=== PATIENT | male | born 1975 | race Caucasian/White ===

== ENCOUNTER 2022-01-13 07:09 | Emergency (ER) | payer BC, SELFPAY ==
--- NOTE | ~2022-01-13 | US_ITS ---
EXAMINATION: US venous doppler LE RT DATE: 01/13/2022 08:01 INDICATION: Right lower limb pain TECHNIQUE: [place]a scale images without and with compression and Doppler images of the right lower extre mity veins were obtained. COMPARISON: None FINDINGS: The right common femoral vein, profunda femoral vein, femoral vein, popliteal vein, peronea l trunk, posterior tibial veins, and greater saphenous vein are patent. There is a small amount of haile bcutaneous fluid in the popliteal fossa. IMPRESSION: 1. Patent right lower extremity veins. No evidence of deep venous thrombosis. 2. Small volume of fluid in the popliteal fossa which could reflect inflammation versus small Villalobos's cyst. Reviewed, dictated and finalized at location B. IMPRESSION: 1. Patent right lower extremity veins. No evidence of deep venous thrombosis. 2. Small volume of fluid in the popliteal fossa which could reflect inflammatio n versus small Villalobos's cyst.
[2022-01-13 07:13] VITALS: BP 126/75; PULSE 85; RESP 17; TEMP 36.6; O2SAT 99
--- NOTE | 2022-01-13 07:21 | ED.GENADULT ---
HPI - General Adult General Chief complaint: Extremity Injury, Lower Stated complaint: pain above prosthetic Time Seen by Provider: 01/13/22 07:14 History of Present Illness HPI narrative: 46-year-old male with past medical history of right BKA a presents for evaluation of posterior knee pain x24 hours. Patient states that he has developed a bump behind the right knee and there is soreness around the lump. The pain is mostly felt when he puts on his prosthetic and it became severe when he went to work this morning. He has had this prosthetic for about 7 months and prior to eat last night has not experienced any difficulties with it. Related Data Allergies Allergy/AdvReac Type Severity Reaction Status Date / Time No Known Allergies Allergy Verified 01/13/22 07:21 Review of Systems Review of Systems: CONSTITUTIONAL: Denies fever, chills, or sweats. EYES: Denies visual changes, redness, or discharge. ENT: Denies rhinorrhea, congestion, sore throat, or otalgia. CARDIOVASCULAR: Denies chest pain, palpitations, or edema. RESPIRATORY: Denies cough or dyspnea. GASTROINTESTINAL: Denies abdominal pain, nausea, vomiting, or diarrhea. GENITOURINARY: Denies dysuria or hematuria. SKIN: Denies rash or itching. MUSCULOSKELETAL: Denies back pain, joint pain, or myalgia. NEUROLOGIC: Denies headache, numbness, or weakness. PSYCHIATRIC: Denies anxiety or depression. Exam Narrative: GENERAL: Well-appearing, well-nourished, and in no acute distress. HEAD: Normocephalic, atraumatic. EYES: PERRLA and EOMI. ENT: Nares clear, no rhinorrhea or epistaxis. Mucous membranes moist. NECK: Supple. CHEST: Clear to auscultation. No respiratory distress. HEART: Regular rate and rhythm. No murmur heard. Normal peripheral pulses. ABDOMEN: Soft, nontender, nondistended, normal active bowel sounds. EXTREMITIES: Normal range of motion. No edema. SKIN: Warm, dry, no rash. NEURO: No focal deficits. Alert and oriented x3. PSYCH: Normal mood and affect. Course Vital Signs Vital signs: Vital Signs Temperature 97.8 F 01/13/22 07:13 Pulse Rate 85 01/13/22 07:13 Respiratory Rate 17 01/13/22 07:13 Blood Pressure 126/75 01/13/22 07:13 Pulse Oximetry 99 01/13/22 07:13 Oxygen Delivery Room Air 01/13/22 07:13 Temperature 97.8 F 01/13/22 07:13 Pulse Rate 85 01/13/22 07:13 Respiratory Rate 17 01/13/22 07:13 Blood Pressure 126/75 01/13/22 07:13 Pulse Oximetry 99 01/13/22 07:13 Oxygen Delivery Room Air 01/13/22 07:13 Medical Decision Making MDM Narrative Medical decision making narrative: We will get venous Doppler of right lower extremity although this seems more like irritation from the patient's prosthetic versus DVT. Pain medication has been offered but patient refuses. Venous Doppler reviewed patient request crutches or knee scooter. Vital Signs Vital Signs: Vital Signs Temperature 97.8 F 01/13/22 07:13 Pulse Rate 85 01/13/22 07:13 Respiratory Rate 17 01/13/22 07:13 Blood Pressure 126/75 01/13/22 07:13 Pulse Oximetry 99 01/13/22 07:13 Oxygen Delivery Room Air 01/13/22 07:13 Temperature 97.8 F 01/13/22 07:13 Pulse Rate 85 01/13/22 07:13 Respiratory Rate 17 01/13/22 07:13 Blood Pressure 126/75 01/13/22 07:13 Pulse Oximetry 99 01/13/22 07:13 Oxygen Delivery Room Air 01/13/22 07:13 Discharge Plan Discharge Clinical Impression: Acute leg pain Patient Disposition: Home, Self-Care Condition: Stable Instructions: Antibiotic Form Prescriptions: New ibuprofen 600 mg tablet 600 mg PO TID 7 Days Qty: 21 0RF Follow-up/Referrals: PHYSICIAN NOT ON STAFF,NONSTAFF [Primary Care Provider] - Time of Disposition: :29
== END 2022-01-13 09:52 | disposition home or self-care (01) ==
PROVIDERS: Emergency Provider Emergency Medicine
DX: M79.604 Pain in right leg (principal); Z89.511 Acquired absence of right leg below knee
CPT/HCPCS: 93971; 99284

== ENCOUNTER 2023-11-09 12:15 | Emergency (ER) | payer OTHER, SELFPAY ==
--- NOTE | ~2023-11-09 | XR_ITS ---
XR wrist LT w scaphoid Ordering provider: Alvin Yen MD History: . radial pain, hx wrist surgery 6 yrs ago, bucked off horse . Comparison: None. FINDINGS: BONES: No acute fracture or dislocation. No definite scaphoid fracture. Postoperative changes in the distal radius. JOINT SPACES: Normal. SOFT TISSUES: Normal. IMPRESSION: No acute osseous abnormality right wrist. Reviewed, dictated and finalized at location A.
--- NOTE | ~2023-11-09 | XR_ITS ---
XR hand LT min 3V Ordering provider: Alvin Yen MD History: . radial pain, hx wrist surgery 6 yrs ago, bucked off horse . Comparison: None. FINDINGS: BONES: No acute fracture or dislocation. Postoperative changes in the distal radius. JOINT SPACES: Well maintained. SOFT TISSUES: Unremarkable. IMPRESSION: No acute osseous abnormality left hand. Reviewed, dictated and finalized at location A.
[2023-11-09 12:17] VITALS: BP 115/72; PULSE 67; RESP 16; TEMP 36.6; O2SAT 97
[2023-11-09 12:19] VITALS: BP 115/72; PULSE 67; RESP 16; TEMP 36.6; O2SAT 97
--- NOTE | 2023-11-09 12:24 | ED.UPPEXIN ---
HPI - Extremity Injury (Upper) General Chief Complaint: Extremity Injury, Upper Stated Complaint: hand injury Time Seen by Provider: 11/09/23 12:23 History of Present Illness HPI narrative: 47-year-old white male was riding horse yesterday, got bucked off, landed hard on his left hand and arm, reports pain and swelling in the left wrist, 1st metatarsal, and base of the thumb. Denies any other injuries, did not hit his head, no loss of consciousness, no neck or back pain, no shoulder or hip pain Related Data Home Medications Medication Instructions Recorded Confirmed elviteg 150 mg-cob 150 mg-emtricit 1 tablet PO DAILY 11/09/23 11/09/23 200 mg-tenofo alafenam 10 mg tablet (Genvoya) Allergies Allergy/AdvReac Type Severity Reaction Status Date / Time No Known Allergies Allergy Verified 11/09/23 12:18 Review of Systems Review of Systems: All systems reviewed & are unremarkable except as noted in HPI and below Exam Const: General: healthy appearing, no acute distress and alert HENMT: Head: normal to inspection Face and sinus: normal facial exam Eyes: Conjunctivae: conjunctivae normal Pupils: Equal, round and reactive pupils present EOM: EOMs intact bilaterally Neck: Neck: normal visual inspection Chest: Chest palpation & inspection: normal inspection of the chest Resp: Effort & Inspection: normal respiratory effort Cardio: Rate: regular rate Rhythm: regular rhythm Skin: General skin exam: normal color Other: ecchymosis on the volar surface of left thenar eminence Neuro: General: patient oriented x3 and moves all extremities Extrem: General: normal to inspection and no clubbing, cyanosis or edema Psych: Mental Status: mental status grossly normal Course Course Emergency Course: differential diagnosis includes but is not limited to fracture left thumb, 1st metatarsal, scaphoid, versus strain or contusion. x-ray of the wrist is negative for fracture x-ray of the hand is negative for fracture thumb spica Velcro splint applied patient given disc of x-rays to take with him at follow-up instructed on elevation, ice, Tylenol, IV Differential diagnosis, workup,, images, radiology report, initial treatment, diagnosis, development treatment plan and disposition complexity and risk is low. I discussed the workup, results, the plan with patient and their family available and they are in agreement. Vital Signs Vital signs: Vital Signs Oxygen Delivery Room Air 11/09/23 12:15 Temperature 36.6 C 11/09/23 12:19 Pulse Rate 67 11/09/23 12:19 Respiratory Rate 16 11/09/23 12:19 Blood Pressure 115/72 11/09/23 12:19 Pulse Oximetry 97 11/09/23 12:19 Oxygen Delivery Room Air 11/09/23 12:19 Discharge Plan Discharge Clinical Impression: Sprain and strain of wrist Patient Disposition: Home, Self-Care Condition: Stable Instructions: Antibiotic Form, Splint Care (ED) Additional Instructions: although your x-rays were negative today, it is possible to have a subtle fracture of your scaphoid bone of your wrist. Please keep this splint on until you follow- up with orthopedist in 7-10 days. If you are still in significant pain they may repeat the x-ray at that time. Bring the disc with you of today's x-rays elevate your wrist and hand over the neck is 24-48 hours, and apply ice bag as needed Tylenol as needed for pain, otc ibuprofen 600 mg 3 times a day as needed for pain return for worsening pain or other concerns Prescriptions: No Action Genvoya [id number] mg tablet 1 tablet PO DAILY Follow-up/Referrals: UNKNOWN,DOCTOR [Primary Care Provider] - Time of Disposition: 13:02
--- NOTE | 2023-11-09 13:28 | PC.NURSE ---
+PMS POST SPLINT APPLICATION
[2023-11-09 13:32] VITALS: BP 136/86; PULSE 75; RESP 16; TEMP 36.5; O2SAT 98
== END 2023-11-09 13:32 | disposition home or self-care (01) ==
LOC: CHSED 13:05
PROVIDERS: Emergency Provider Emergency Medicine
DX: S63.502A Unspecified sprain of left wrist, initial encounter (principal); S66.912A Strain of unspecified muscle, fascia and tendon at wrist and hand level, left hand, initial encounter; V80.010A Animal-rider injured by fall from or being thrown from horse in noncollision accident, initial encounter
CPT/HCPCS: 73110; 73130; 99283; L3908

== ENCOUNTER 2023-12-07 22:24 | Emergency (ER) | payer OTHER, SELFPAY ==
--- NOTE | ~2023-12-07 | XR_ITS ---
EXAM: XR wrist LT min 3V, XR hand LT min 3V DATE: 12/07/2023 22:51 (accession [id number]), 12/07/2023 22:50 (accession [id number]) HISTORY: pain/postop . COMPARISON: 11/09/2023. FINDINGS: Osseous detail obscured by overlying cast material. Degenerative changes at the triscaphe joint, first CMC joint, and first MTP joint. Uncomplicated appearing distal radial screw and plate fi xation. K wire fixation of a proximal first metacarpal fracture into near-anatomic alignment. IMPRESSION: Status post K wire fixation of a left first proximal metacarpal fracture. No radiographic evidence of procedure or hardware related complication. Reviewed, dictated and finalized at [facility]. IMPRESSION: Status post K wire fixation of a left first proximal metacarpal fra cture. No radiographic evidence of procedure or hardware related complication.
[2023-12-07 22:26] VITALS: BP 128/55; PULSE 88; RESP 18; TEMP 36.7; O2SAT 98
--- NOTE | 2023-12-07 22:29 | ED.UPPEXIN ---
HPI - Extremity Injury (Upper) General Chief Complaint: Extremity Injury, Upper Stated Complaint: Extremedity Evaluation Time Seen by Provider: 12/07/23 22:29 Source: patient Mode of arrival: ambulatory Limitations: no limitations History of Present Illness HPI narrative: patient is a 48-year-old male with a left thumb postop 2 and half weeks from a thumb base fracture. He was not having any problems until eating dinner and felt a pop in this area and now there is pain. Pain is traveling up the left forearm with some swelling internally per the patient's sensation. MD complaint: injury to: left and finger ( Thumb base) Onset (ago): hour(s) (1) Other Extremity Injury: Left: fingers ( thumb base) Other injuries: none Place: home Severity: moderate Severity scale (1-10): 5 Relieving factors: none Exacerbating factors: none Context: other ( no injury occurred this evening) Associated symptoms: denies other symptoms Treatments prior to arrival: other ( hard casted left hand and wrist and forearm) Related Data Home Medications Medication Instructions Recorded Confirmed No Home Medications 12/07/23 12/07/23 Allergies Allergy/AdvReac Type Severity Reaction Status Date / Time No Known Allergies Allergy Verified 11/09/23 12:18 Review of Systems Review of Systems: All systems reviewed & are unremarkable except as noted in HPI and below Constitutional: Constitutional: Reports no additional constitutional complaints Eyes: Eyes: Reports no additional eye complaints ENT: Reports system reviewed and no additional complaints, except as documented Cardiovascular: Cardiovascular: Reports no additional cardiovascular complaints Respiratory: Respiratory: Reports no additional respiratory complaints Gastrointestinal: Gastrointestinal: Reports no additional gastrointestinal complaints Genitourinary: Genitourinary: Reports no additional male genitourinary complaints Musculoskeletal: Musculoskeletal: Reports no additional musculoskeletal complaints Integumentary/Breasts: Skin/Breast: Reports system reviewed and no additional complaints, except as docu Neurologic: Reports system reviewed and no additional complaints, except as documented Psychiatric: Psychiatric: Reports no additional psychiatric complaints Endocrine: Endocrine: Reports no additional endocrine complaints Hematologic/Lymphatic: Hematologic/Lymphatic: Reports no additional hematologic/lymphatic complaints Allergic/Immunologic: Allergic/Immunologic: Reports no additional allergic/immunologic complaints Exam Const: General: healthy appearing Nutritional Appearance: well nourished Orientation/consciousness: patient oriented x3 HENMT: Head: normal to inspection Ears: external ears normal Face/Nose/Sinus: Normal external nose present Eyes: Conjunctivae: conjunctivae normal Pupils: Equal, round and reactive pupils present EOM: EOMs intact bilaterally Neck: Neck: normal visual inspection Chest: Chest palpation & inspection: normal inspection of the chest Resp: Effort & Inspection: normal respiratory effort and not labored Auscultation: clear to auscultation bilaterally Cardio: Rate: regular rate Rhythm: regular rhythm Heart sounds: no murmurs GI: Inspection: distended GI Palp: Yes Soft to palpation and No Tenderness to palpation present (GI) Auscultation: normal bowel sounds : General: Yes bladder normal to palpation Back/Spine/Pelvis: Back: no CVA tenderness Skin: General skin exam: normal color Rashes: no rashes Wounds: no wounds Other: left hand distal aspect outside the cast is intact neurovascularly; two-second cap refills and normal colored skin of distal visual fingertips; proximal area also was not swollen or abnormal Neuro: General: patient oriented x3 Cranial nerves: Yes Nystagmus not present Speech: normal speech Gait exam (Neuro): Normal gait present Extrem: General: normal to inspection Psych: Mental Status:
--- NOTE | 2023-12-07 22:31 | PC.NURSE ---
ER provider at the bedside
--- NOTE | 2023-12-07 22:39 | PC.NURSE ---
xray at the bedside
--- NOTE | 2023-12-07 23:01 | PC.NURSE ---
patient left arm elevated up on bedside table and pillow
--- NOTE | 2023-12-07 23:18 | PC.NURSE ---
ER provider at the bedside
[2023-12-07 23:35] VITALS: BP 126/62; PULSE 82; RESP 18; O2SAT 99
== END 2023-12-07 23:35 | disposition home or self-care (01) ==
PROVIDERS: Emergency Provider Emergency Medicine
DX: S62.102D Fracture of unspecified carpal bone, left wrist, subsequent encounter for fracture with routine healing (principal); X58.XXXD Exposure to other specified factors, subsequent encounter
CPT/HCPCS: 73110; 73130; 99283

== ENCOUNTER 2024-05-13 09:20 | Outpatient (CLI) | payer OTHER, SELFPAY ==
[2024-05-13 10:06] LABS: Hemoglobin A1C 4.9 % (<5.7)
[2024-05-13 10:39] LABS: Folic Acid 16.7 ng/mL (8.6->20); Iron 62 ug/dL (65-175); Magnesium 2.1 mg/dL (1.8-2.4); Percent Iron Saturation 24 % (12-57); Vitamin B12 1893 pg/mL (193-986)
[2024-05-14 07:28] LABS: Vitamin D 25 Hydroxy 44 ng/mL (30-100)
== END 2024-05-13 09:21 | disposition home or self-care (01) ==
LOC: CHSLAB 09:24
DX: R79.82 Elevated C-reactive protein (CRP) (principal); R74.8 Abnormal levels of other serum enzymes; E78.5 Hyperlipidemia, unspecified; Z98.84 Bariatric surgery status; Z90.3 Acquired absence of stomach [part of]
CPT/HCPCS: 36415; 82306; 82607; 82746; 83036; 83540; 83550; 83735; 84425

== ENCOUNTER 2025-03-15 13:25 | Outpatient (CLI) | payer OTHER, SELFPAY ==
--- NOTE | ~2025-03-15 | MR_ITS ---
EXAM/PROCEDURE: MR brain/brain stem wo/w con HISTORY: OTHER SPECIFIED FORMS OF TREMOR COMPARISON: None available. TECHNIQUE: Pre and postcontrast enhanced multiplanar brain MRI performed. FINDINGS: No mass, mass effect or hemorrhage. No restricted diffusion or acute ischemic event. No abnormal enhancing lesions or masses on postcontrast series. Hippocampal regions brainstem and cerebellum appear normal. Mild mucoperiosteal thickening in the maxillary sinuses and 1.2 cm right maxillary sinus mucocele or mucous retention cyst. The remainder the paranasal, para orbital calvarial structures are unremarkable. Vascular flow voids patent at the skull base. IMPRESSION: Mild paranasal sinus disease, otherwise negative pre and postcontrast enhanced brain MRI. Reviewed, dictated and finalized at location A. ASE CASE MANAGER
--- OUTSIDE RECORDS SUMMARY | 2025-03-15 14:05 | XMS_ITS | Encounter Summary ---
Author Organization [facility] Address [facility] [place] [address] Care Team Providers Care Undergraduate Advisor Name Role Phone Shaheed Vasquez MD Primary Care Provider Ruma Vasquez MD Primary Care Provider [phone] Encounter Details Date Type Department Care Team (Late st Contact Info) Description 07/17/2017 Abstract [facility] CONVERSION [address] [place] [address] , Generic ConversionMD Social History Tobacco Use Types Packs/Day Years Used Date Smoking Tobacco: Never Assessed Sex and Gender Information Value Date Recorded Sex Assigned at Not on file Legal Sex Male 10:30 PM [employer] Gender Identity Not on file Sexual Orientation Not on file documented as of this encounter Plan of Treatment Not on file documented as of this encounter Visit Diagnoses Not on filedocumented in this encounter Additional Health Concerns Infection Onset Date Last Indicated Resolved Time COVID-19 Rule Out 04/05/2020 04/05/2020 04/06/2020 4:51 PM [employer] documented as of this encounter Care Teams Undergraduate Advisor Relationship Specialty Start Date End Date Shaheed Vasquez MD [address] [place] [address] PCP - General FAMILY PRACTICE 05/11/20 11/17/23 Ruma Vasquez MD [address] [place] [address] PCP - General FAMILY PRACTICE 11/18/23 documented as of this encounter
--- OUTSIDE RECORDS SUMMARY | 2025-03-15 14:05 | XMS_ITS | Clinical Summary ---
Author Organization [facility] Address [address] [facility], [facility] [address] [place] [address] Phone Care Team Providers Care Shellfish Sorter Name Role Phone Mihir Garrido MD, Alison E MD Primary Care Provider [phone] Allergies No known active allergies Medications Calcium Citrate 250 MG Tablet Take 500 mg by mouth 2 times daily. Active Multiple Vitamins-Minerals (BARIATRIC MULTIVITAMINS/IRON PO) Take 1 Tablet by mouth daily. Active Omeprazole 20 MG Tablet Delayed Response Take 20 mg by mouth daily. Active yvsomyq-njdja-eehpf cit-tenofDF (Stribild) [id number] MG TabletIndications:H IV disease,On highly active antiretroviral therapy (HAART) Take 1 Tablet by mouth daily. 30 Tablet 6 2 Active Active Problems Problem Noted Date Diagnosed Date Weight gain 09/24/2015 On highly active antiretroviral therapy (HAART) 05/01/2015 HIV disease 03/14/2015 Hyperlipidemia Local infection of skin and subcutaneous tissue Methicillin susceptible Staphylococcus aureus in fection History of Pseudomonas infection, right leg Depression Resolved Problems Problem Noted Date Diagnosed Date Resolved Date Cellulitis and abscess 05/01 Pain in joint, ankle and foot 05/01/2015 Immunizations Immunization Administration Dates Next Due Covid-19 Vaccine, Vector-nr, Rs-ad26, Pf, 0.5 Ml (ANNY/J&J) 07/05/2020 Influenza Vaccine 01/31/2019,02/12/2016,02/11/20 11 Influenza Vaccine greater than 3 yrs 01/30/2014 Influenza Vaccine, MDCK,quad rivalent, pres free 02/11/2017 Influenza Vaccine, Quadrivalent, PF 02/25/2022,0 01/19/2020,05/03/2018 Influenza, Seasonal, Injectable, Undefined 01/17 PUR FLU 3+ YRS PRES FREE QUAD IM 03/19/2015 Pneumococcal Vaccine - 13 Valent 12/13/2018 Pneumococcal Vaccine Adult - 23 Valent 2,02/10/2011 Tetanus Vaccine 02/24/2011 Family History Medical History Relation Name Comments No Known Problems Brother Hypertension Father No Known Problems Maternal Grandfather Parkinsonism Maternal Grandmother Diabetes Mother Other-comment Mother Dk granul omatosis Cancer Paternal Grandfather pancrea tic cancer No Known Problems Paternal Grandmother Relation Name Status Comments Brother Alive Father Alive Maternal Grandfather Maternal Grandmother Mother Alive Paternal Grandfather Paternal Grandmother Alive Social History Tobacco Use Types Packs/Day Years Used Date Smoking Tobacco: Never Smokeless Tobacco: Never Tobacco Cessation:Counseling Given: No Alcohol Use Standard Drinks/Week Comments Not Currently 0 (1 standard drink = 0.6 oz pur e alcohol) rare occasion PHQ-2 Answer Date Recorded Total Score - Questions 1-9 0 07/01 Sexually Active Control Partners Comments Yes Male Condom Male Sex and Gender Information Value Date Recorded Sex Assigned at Not on file Legal Sex Male 12:15 AM CDT Gender Identity Not on file Sexual Orientation Not on file Last Filed Vital Signs Vital Sign Reading Time Taken Comments Blood Pressure 118/78 04/09/2022 3:40 PM MDS NURSE Pulse 96 04/09/2022 3:40 PM MDS NURSE Temperature 37 C (98.6 F) 04/09/2022 3:40 PM MDS NURSE Respiratory Rate 20 01/15/2022 3:28 PM CDT Oxygen Saturation 98% 04/09/2022 3:40 PM MDS NURSE Inhaled Oxygen Concentration - - Weight 91.3 kg (201 lb 3.2 oz) 04/09/2022 3:40 P M MDS NURSE Height 180.3 cm (5' 11) 04/09/2022 3:40 PM MDS NURSE Body Mass Index 28.06 04/09/2022 3:40 PM MDS NURSE Plan of Treatment Health Maintenance Due Date Last Done Comments TdaP Immunization 1974 Meningococcal Immunization (ACWY) (1 - Risk 2-dose series) 1976 Hepatitis B Immunization (1 of 3 - 19+ 3-dose series) 1993 Zoster Immunization (1 of 2) 1993 Cologuard 12/07/2019 Colonoscopy 12/07/2019 Colorectal Cancer Screening 12/07/2019 Immunochemical Fecal Occult Blood 12/07/2019 Respiratory Syncytial Virus (RSV) Immunization (Adult) (1 - Risk 50-74 years 1-dose series) 2024 Influenza Immunization (#1) 2025 102 10/2021, 01/17/2021, 01/19/2020, Additional history exists SARS-COV-2 Immunization (3 - season) 2025 04/22/2021, 07/05/2020 Pneumococcal Immunization (50+ years) (4 of 4 - PCV20 or PCV21) 01/15/2027 01/15/2022, 12/13/2018, 02/10/2011 Hepatitis C Virus (HCV) Screening Completed 12/15/2020, 10/30/2019 Pneumococcal Immunization Combined Discontinued 01/15/2022, 12/13/2018, 02/10/2011 Human Papillomavirus (HPV) Immunization Aged Out No longer eligible based on patient's age to complete this topic Rotavirus Immunization Aged Out No lo nger eligible based on patient's age to complete this topic Procedures Procedure Name Priority Date/Time Associated Diagnosis Comments HEPATITIS PANEL ACUTE (AHP) Routine 12/15/2020 10:57 AM CDT HIV disease (HCC) On highly active antiretroviral therapy (HAART) Need for hepatitis C screening test Nausea from Last 3 Months or Most Recently Relevant to Health Maintenance Results * HEPATITIS PANEL ACUTE (AHP) (12/15/2020 10:57 AM CDT) HEPATITIS A IGM ANTIBODY NEGATIVE NEGATIVE 12/15/2020 3:12 PM T [facility] Comment:Samples containing > 500ng/ml of Biotin can have a falsely lower value. HEP B CORE AB (IGM) NEGATIVE NEGATIVE 12/15/2020 3:12 PM T [facility] Comment:Samples containing > 250ng/ml of Biotin can have a falsely lower value. HEPATITIS B SURFACE ANTIGEN NEGATIVE NEGATIVE 12/15/2020 3:12 PM CDT [facility] Comment:Samples containing > 50 ng/ml of Biotin can have a falsely lower value, in samples with a low concentration of HBsAG HCV QUALITATIVE Negative Negative 3:12 PM CDT [facility] Blood Venipuncture / Unknown 12/15/2020 10:57 AM CDT 12/15/2020 1:14 PM CDT us Mihir Garrido MD HEMATOLOGY ORDERABLES Fin al Result [facility] [address] [place] [address] from Last 3 Months or Most Recently Relevant to Health Maintenance [place] [address] [place] [address] MEDICARE Care Teams Shellfish Sorter Relationship Specialty Start Date End Date Ruma Vasquez MD [address] [place] [id number] PCP - General Family Medicine 01/15/22 Mihir Garrido MD Infectious Disease 03/19/15
--- OUTSIDE RECORDS SUMMARY | 2025-03-15 14:05 | XMS_ITS | Clinical Summary ---
Author Organization [facility] Address [address] [place] [address] Care Team Providers Care Electrical Assembly Supervisor Name Role Phone Ruma Vasquez MD Primary Care Provider [phone] Allergies No known active allergies Medications Multiple Vitamins-Mineral s (ONCOVITE) Tab Take 1 tablet by mouth daily. Active vitamin B-12 (CYANOCOBALAMIN) (CYANOCOBALAMIN) 1000 mcg tablet Take 1 tablet (1,000 mcg total) by mouth daily. Active calcium carbonate (OS-BRITTON) 1250 (500 Ca) MG tablet Take 1 tablet (1,250 mg total) by mouth daily. Active ferrous sulfate, 65 mg elemental, 325 (65 FE) MG tablet Take 1 tablet (325 mg total) by mouth daily with breakfast. Active GENVOYA [phone] MG Tab tablet Take 1 tablet by mouth daily. 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 Gender Identity Not on file Sexual Orientation Not on file Last Filed Vital Signs Vital Sign Reading Time Taken Comments Blood Pressure 122/76 11/18/2023 3:50 PM CDT Pulse 80 11/18/2023 3:50 PM CDT Temperature 36.1 C (97 F) 11/18/2023 3:50 PM CDT Respiratory Rate 16 11/18/2023 3:50 PM CDT Oxygen Saturation 97% 11/18/2023 3:50 PM CDT Inhaled Oxygen Concentration - - Weight 99.8 kg (220 lb) 11/17/2023 2:15 PM CDT Height 180.3 cm (5' 11) 11/17/2023 2:15 PM CDT Body Mass Index 30.68 11/17/2023 2:15 PM CDT Plan of Treatment Health Maintenance Due Date Last Done Comments Colorectal Cancer Screening Colonoscopy (10 Years) 1974 Annual Physical 1977 Hepatitis B Vaccines (1 of 3 - 19+ 3-dose series) 1993 DTaP, Tdap and Td Vaccines (1 - Tdap) 02/25/2011 02/24/2011 Zoster Vaccines (1 of 2) 2024 COVID-19 Vaccine (2 - season) 2025 07/05/2020 Influenza Adult (#1) 2025 02/25/2022, 01/17/2021, 01/19/2020, Additional history exists Pneumococcal Vaccine: 50+ Years (3 of 3 - PCV20 or PCV21) 01/15/2027 01/15/2022, 12/13/2018, 02/10/2011 Hepatitis C Completed 12/15/2020 Hepatitis A Vaccines Aged Out No long er eligible based on patient's age to complete this topic Meningococcal B Vaccine Aged Out No l onger eligible based on patient's age to complete this topic Meningococcal Vaccine Aged Out No jim lashay eligible based on patient's age to complete this topic RSV Immunizations Under 20 Months Aged Out No longer eligible based on patient's age to complete this topic Medical Devices Implanted Type Area Database Development Project Manager Device Identifier Shelf Expiration Date Model / Serial / Lot K Wire Rene 6 In X .045 In - [id number] Implanted:Qty: 2 on 11/18/2023 by Jared Clayton MD at [facility] Wire [employer] [id number] 04/04/2033 [id number] Insurance MEDICARE PART A Member Subscriber Plan / Payer (Ef fective 2022-Present) Name:Ronny Archuleta Relation to Subscriber:Self Name:Ronny Archuleta Payer ID:Not on file Group ID:Not on file Type:Indemnity Address: [facility] [address], [place] [facility] Care Teams Electrical Assembly Supervisor Relationship Specialty Start Date End Date Ruma Vasquez MD [address] [place] [address] PCP - General FAMILY PRACTICE 11/18/23
--- OUTSIDE RECORDS SUMMARY | 2025-03-15 14:05 | XMS_ITS | Encounter Summary ---
Author Organization [facility] Address [facility] [place] [address] Care Team Providers Care Managing Partner Name Role Phone Shaheed Vasquez MD Primary Care Provider Ruma Vasquez MD Primary Care Provider [phone] Encounter Details Date Type Department Care Team (Late st Contact Info) Description 10/08/2018 Abstract [facility]FL CONVERSION [address] [place] [address] , Generic Conversion, Social History Tobacco Use Types Packs/Day Years Used Date Smoking Tobacco: Never Assessed Sex and Gender Information Value Date Recorded Sex Assigned at Not on file 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 Gender Identity Not on file Sexual Orientation Not on file documented as of this encounter Plan of Treatment Not on file documented as of this encounter Visit Diagnoses Not on filedocumented in this encounter Additional Health Concerns Infection Onset Date Last Indicated Resolved Time COVID-19 Rule Out 04/05/2020 04/05/2020 04/06/2020 4:51 PM GSA COORDINATOR documented as of this encounter Care Teams Managing Partner Relationship Specialty Start Date End Date Shaheed Vasquez MD [address] [place] [address] PCP - General FAMILY PRACTICE 05/11/20 11/17/23 Ruma Vasquez MD [address] [place] [address] PCP - General FAMILY PRACTICE 11/18/23 documented as of this encounter
--- OUTSIDE RECORDS SUMMARY | 2025-03-15 14:05 | XMS_ITS | Encounter Summary ---
Author Organization [facility] Address [address] [place] [address] Phone Care Team Providers Care Senior Quality Methods Specialist Name Role Phone Shaheed Vasquez MD Primary Care Provider Mihir Alfaro MD Unavailable Ruma Davila MD Primary Care Provider [phone] Reason for Visit * Reason Comments Medication Refill Encounter Details Date Type Department Care Team ([facility] st Contact Info) Description 01/09/2021 Refill [facility] [address] [facility] [address] [place] [id number] Mihir Garrido MD Medication Refill Social History Tobacco Use Types Packs/Day Years Used Date Smoking Tobacco: Never Smokeless Tobacco: Never Alcohol Use Standard Drinks/Week Comments Yes 0 (1 standard drink = 0.6 oz pur e alcohol) rare occasion PHQ-2 Answer Date Recorded Total Score - Questions 1-9 0 06/03 Sexually Active Control Partners Comments Yes Male Sex and Gender Information Value Date Recorded Sex Assigned at Not on file Legal Sex Male 12:15 AM CDT Gender Identity Not on file Sexual Orientation Not on file COVID-19 Exposure Response Date Recorded In the last month, have you been in contact with someone who was confirmed or suspected to have Coronavirus / COVID-19? No / Unsure 01/09/2021 2:24 PM CDT documented as of this encounter Functional Status * Over the past 2 weeks, how often have you been bothered by any of the following problems? Question Answer Date of Assessment Author Little interest or pleasure in doing things Not at all 01/09/2021 2:00 PM CDT Malu Rush MA Feeling down, depressed, or hopeless Not at all 01/09/2021 2:00 PM CDT Malu Rush MA Patient Health Questionnaire -2 Score 0 01/09/2021 2:00 PM CDT Malu Rush MA documented as of this encounter Miscellaneous Notes * Telephone Encounter - Tania Bautista RN - 01/13/2021 8:00 AM CDT Refilled medication through a different encounter on 01/09/21. 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
== END 2025-03-15 13:26 | disposition home or self-care (01) ==
DX: G25.2 Other specified forms of tremor (principal); J32.8 Other chronic sinusitis
CPT/HCPCS: 70553; A9577

== ENCOUNTER 2025-04-06 14:43 | Outpatient (CLI) | payer OTHER, SELFPAY ==
[2025-04-06 15:03] LABS: Hematocrit 47.1 % (40.0-54.0); Hemoglobin 15.7 g/dL (14.0-18.0); Immature Granulocyte Percent A 0.2 % (0.0-0.0); Lymphocytes Absolute Auto 2.00 K/mm3 (1.10-4.50); Mean Corpuscular HGB Conc 33.3 g/dL (32-36); Mean Corpuscular Hemoglobin 28.4 pg (27.0-31.0); Mean Corpuscular Volume 85.3 fL (78.0-102.0); Nucleated Red Blood Cells Absolute Auto 0.00 K/mm3 (0.00-0.00); Nucleated Red Blood Cells Perc 0.0 % (0-0.0); Platelet Count Result 213 K/mm3 (150-420); Red Blood Count 5.52 M/mm3 (4.70-6.10); White Blood Count 6.0 K/mm3 (4.8-10.8)
[2025-04-06 15:24] LABS: Hemoglobin A1C 5.0 % (<5.7)
[2025-04-06 15:31] LABS: Magnesium 2.2 mg/dL (1.6-2.3)
[2025-04-06 16:04] LABS: Iron 91 ug/dL (49-181); Percent Iron Saturation 29 % (20-50)
[2025-04-06 16:42] LABS: Vitamin B12 243.0 pg/mL (239-931)
[2025-04-09 09:33] LABS: Alanine Aminotransferase 15 U/L (6-50); Albumin Level 4.5 g/dL (3.5-5.1); Alkaline Phosphatase 119 U/L (38-126); Anion Gap 8 mmol/L (4-12); Aspartate Amino Transferase 26 U/L (17-59); Bilirubin,Total 0.9 mg/dL (0.2-1.3); Blood Urea Nitrogen 10 mg/dL (9-20); Calcium 9.1 mg/dL (8.4-10.2); Carbon Dioxide 29 mmol/L (22-30); Chloride 105 mmol/L (98-107); Cholesterol 169 mg/dL (0-200); Estimated Glomerular Filt Rate > 60; Glucose 110 mg/dL (65-110); HDL Direct 32 mg/dL; Osmolality Calculated 294 mOsm/kg (285-295); Potassium 4.3 mmol/L (3.4-5.0); Sodium 142 mmol/L (137-145); Total Protein 7.2 g/dL (6.3-8.2); Triglycerides 110 mg/dL (<150)
== END 2025-04-06 14:44 | disposition home or self-care (01) ==
DX: Z00.00 Encounter for general adult medical examination without abnormal findings (principal); R74.8 Abnormal levels of other serum enzymes; Z98.84 Bariatric surgery status; Z90.3 Acquired absence of stomach [part of]; E78.5 Hyperlipidemia, unspecified; E61.1 Iron deficiency; E66.3 Overweight; E53.8 Deficiency of other specified B group vitamins
CPT/HCPCS: 36415; 80053; 80061; 82306; 82607; 82746; 83036; 83540; 83550; 83735; 85025